=== PATIENT | female | born 1990 | race Caucasian/White ===

== ENCOUNTER → 2016-12-08 | Outpatient (CLI) | payer BC ==
--- NOTE | ~2016-12-08 | US98 ---
[facility] A Service of [facility] RADIOLOGY TEXT RESULTS PATIENT: DAYRON AMOR LOCATION: [facility] : [birth year] UNIT #: [id number] AGE: [address]: TYLER ALEJANDRE MD SEX: F ORDER DR: [id number] [address] [address] [id number] O MR#: [id number] Acc #: [id number] NAME: DAYRON AMOR : 1990 SEX: F STUDY DATE/TIME: 12/08/2016 12:41 UNIT: SGUS ROOM: STUDY DESCRIPTION: US Pelvic Non-OB Complete Ordering Physician: Aylin Alejandre M.D. MEDICAL IMAGING REPORT This report is preliminary unless electronic signature is present. EXAM Pelvic sonogram HISTORY Pelvic pain for 2 years. Patient unsure of LMP. TECHNIQUE Examination was performed utilizing both transabdominal and endovaginal scanning. FINDINGS Examination demonstrates a normal-appearing non-gravid uterus. The uterus appears retroverted. Uterus measures 5.9 x 3.2 x 4 cm. No mass lesion is identified. Endometrium demonstrates a double-thickness measurement 9 mm. No free fluid or adnexal masses. Both ovaries demonstrate flow. Left ovary is mildly enlarged, measuring over 4 cm and contains a cystic structure measuring up to 2 cm, may represent a dominant follicle. No complex features are identified. No free fluid or adnexal masses. IMPRESSION Normal pelvic sonogram. Normal-appearing retroverted uterus and normal ovaries. Dominant follicle noted in the right ovary measuring about 2 cm. Dictated by... Chase Delong M.D. THIS IS AN ELECTRONICALLY VERIFIED REPORT Chase Delong M.D. at 12/09/2016 1:32 PM LYNDA/jose [facility] A Service of [facility] RADIOLOGY TEXT RESULTS PATIENT: DAYRON AMOR LOCATION: [facility] : 88 UNIT #: [id number] AGE: [address]: TYLER ALEJANDRE MD SEX: F ORDER DR: TD: 12/08/2016 22:06 JOB #: [id number] MEDICAL IMAGING REPORT Page 1 of 1
== END | disposition home or self-care (01) ==
LOC: SGUS 12:38
DX: R10.30 Lower abdominal pain, unspecified (principal)
CPT/HCPCS: 76830; 76856

== ENCOUNTER → 2016-12-15 | Outpatient (CLI) | payer BC ==
--- NOTE | ~2016-12-15 | CT2 ---
[facility] A Service [facility] RADIOLOGY TEXT RESULTS PATIENT: DAYRON AMOR LOCATION: [facility] : [birth year] UNIT #: [id number] AGE: [address]: TYLER ALEJANDRE MD SEX: F ORDER DR: [id number] [place] [id number] O MR#: [id number] Acc #: [id number] NAME: DAYRON AMOR : 1990 SEX: F STUDY DATE/TIME: 12/15/2016 13:29 UNIT: [facility] ROOM: STUDY DESCRIPTION: CT Abd and Pelv W Cont Attending Physician: Tyler Alejandre Referring Physician: Tyler Alejandre Ordering Physician: Alyin [id number] Dubon Primary Care Physician: Tyler Alejandre MEDICAL IMAGING REPORT This report is preliminary unless electronic signature is present. EXAM CT abdomen and pelvis with contrast INDICATIONS Lower abdominal pain for the past 3 years. PROCEDURE Contrast-enhanced CT of the abdomen and pelvis. This CT exam was performed with one or more of the following radiation dose reduction techniques: automatic control, adjustment of mA and/or kV according to patient size, and iterative reconstruction. COMPARISON None FINDINGS ABDOMEN WITH CONTRAST: Included lung bases are clear. Liver spleen adrenal pancreas and gallbladder unremarkable. Bowel loops are nondilated appendix is normal. There is a 2 mm nonobstructing calculus in the left kidney. Tiny fat-containing umbilical hernia. PELVIS WITH CONTRAST: No pelvic mass or fluid. No aggressive appearing bone lesion. IMPRESSION 1. No acute findings in the abdomen or pelvis. 2. Incidental findings detailed above. Dictated by... Kishore Bauer M.D. [facility] A Service [facility] RADIOLOGY TEXT RESULTS PATIENT: DAYRON AMOR LOCATION: [facility] : [birth year] UNIT #: [id number] AGE: [address]: TYLER ALEJANDRE MD SEX: F ORDER DR: THIS IS AN ELECTRONICALLY VERIFIED REPORT Kishore Bauer M.D. at 12/16/2016 5:00 PM CARLITOS/meg TD: 12/16/2016 12:35 JOB #: [id number] MEDICAL IMAGING REPORT Page 1 of 1
== END | disposition home or self-care (01) ==
LOC: SCT 12:04
DX: R79.82 Elevated C-reactive protein (CRP) (principal); R10.30 Lower abdominal pain, unspecified
CPT/HCPCS: 74177; Q9967